=== PATIENT | male | born 2000 ===

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

== ENCOUNTER 2019-07-02 03:00 | Emergency (ER) | payer SELFPAY ==
[2019-07-02 03:18] VITALS: BP 154/90
== END 2019-07-02 03:47 | disposition left against medical advice (07) ==
LOC: ED 03:00
DX: R10.9 Unspecified abdominal pain (principal); Z53.21 Procedure and treatment not carried out due to patient leaving prior to being seen by health care provider
CPT/HCPCS: 99281